=== PATIENT | male | born 1950 | race Caucasian/White ===

== ENCOUNTER 2020-11-14 07:47 | Emergency (ER) | payer MEDICARE, BC ==
[~2020-11-14] VITALS: Ht 167.6 cm; Wt 64.4 kg
--- NOTE | 2020-11-14 08:05 | NUR ---
RUQ PAIN STARTED AT 0330 NOT RELIEVED W/ TYLENOL. DENIES N/V. PATIENT A/OX4, BREATHING EVEN AND UNLABORED, NO SOB NOTED. NEEDS ATTENDED. KEPT COMFORTABLE. CHANGED INTO A GOWN. ASSISTED TO BED 13.
--- NOTE | 2020-11-14 08:20 | NUR ---
IV LINE ESTABLISHED, BLOOD DRAWN AND SENT TO LAB.
[2020-11-14] MEDS ORDERED: ONDANSETRON HCL/PF 4 MG/2 ML VIAL ONE (08:34)
[2020-11-14] MEDS: ONDANSETRON HCL/PF 4 MG/2 ML VIAL IVP ONE (08:40)
[2020-11-14] MEDS: IV NS 0.9% 500 ML BAG IV ONE (08:40)
[2020-11-14 08:41] LABS: LYMPHOCYTES # (AUTO) 0.6 /CMM (0.8-4.8); MEAN CORPUSCULAR HGB CONC 32 g/dl (31.0-36.0); MONOCYTES # (AUTO) 0.3 /CMM (0.1-1.30)
[2020-11-14 08:45] LABS: BASOPHILS % (AUTO) 0.4 % (0.0-2.0); EOSINOPHILS % (AUTO) 0.2 % (0.0-6.0); HEMATOCRIT 37 % (39-51); HEMOGLOBIN 11.7 g/dL (13.5-17.5); LYMPHOCYTES % (AUTO) 7.2 % (20.0-44.0); MEAN CORPUSCULAR VOLUME 63 fL (80-96); MONOCYTES % (AUTO) 3.6 % (2.0-12.0); NEUTROPHILS # (AUTO) 7.6 /CMM (1.8-8.9); NEUTROPHILS % (AUTO) 88.6 % (43.0-81.0); PLATELET COUNT (AUTO) 150 /CMM (150-450); RED BLOOD CELL COUNT(AUTO) 5.84 MIL/uL (4.5-6.0); WHITE BLOOD COUNT (AUTO) 8.6 K/uL (4.3-11.0)
[2020-11-14 09:10] LABS: CALCIUM, SERUM 9.5 mg/dL (8.5-10.1); CARBON DIOXIDE 30 mmol/L (21-32); CHLORIDE 102 mmol/L (98-107); CREATININE 1.3 mg/dL (0.6-1.3); GLUCOSE 135 mg/dL (74-106); POTASSIUM 3.6 mmol/L (3.5-5.1); SODIUM SERUM 140 mmol/L (136-145); UREA NITROGEN, BLOOD 15 mg/dL (7-18)
[2020-11-14 09:16] LABS: ALANINE AMINOTRANSFERASE 19 U/L (12-78); ALKALINE PHOSPHATASE 65 U/L (46-116); ASPARTATE AMINOTRANSFERASE 14 U/L (15-37); BILIRUBIN,DIRECT 0.1 mg/dL (0.0-0.2); BILIRUBIN,TOTAL 0.5 mg/dL (0.2-1.0); LIPASE 103 U/L (73-393); TOTAL PROTEIN, SERUM 7.9 g/dL (6.4-8.2)
[2020-11-14] MEDS ORDERED: IOHEXOL-300 100 ML VIAL IV ONE (09:50)
[2020-11-14] MEDS ORDERED: IV NS 0.9% 250 ML IV ONE (09:51)
[2020-11-14] MEDS ORDERED: PANTOPRAZOLE 40 MG VIAL ONE (12:21)
[2020-11-14] MEDS ORDERED: KETOROLAC TROMETHAMINE 15 MG/ML VIAL ONE (12:21)
[2020-11-14] MEDS ORDERED: METRONIDAZOLE 500 MG TABLET ONE (12:22)
[2020-11-14] MEDS ORDERED: CIPROFLOXACIN HCL 500 MG TABLET ONE (12:22)
[2020-11-14] MEDS: CIPROFLOXACIN HCL 250 MG TABLET PO ONE (12:35)
[2020-11-14] MEDS: KETOROLAC TROMETHAMINE INJ 30 MG/ML VIAL IV ONE (12:35)
[2020-11-14] MEDS: METRONIDAZOLE 500 MG TABLET PO ONE (12:35)
[2020-11-14] MEDS: PANTOPRAZOLE 40 MG VIAL IV ONE (12:35)
--- NOTE | 2020-11-14 13:40 | NUR ---
IV removed. Catheter intact and site benign. Pressure and 4x4 applied to site. No bleeding noted.Patient discharged to home in stable condition. Written and verbal after care instructions given. Patient verbalizes understanding of instruction.
[2020-11-14 13:41] VITALS: BP 154/90
== END 2020-11-14 13:42 | disposition home or self-care (01) ==
LOC: ER 07:55
DX: K80.20 Calculus of gallbladder without cholecystitis without obstruction (principal); K57.32 Diverticulitis of large intestine without perforation or abscess without bleeding; I10 Essential (primary) hypertension
CPT/HCPCS: 74177; 80048; 80076; 83605 ×2; 83690; 85025; 85730; 93005; 96374; 96375; 99285; C9113; J1885; J2405; J7040; J7050; Q9967